=== PATIENT | female | born 1970 | race Caucasian/White ===

== ENCOUNTER 2017-11-05 07:47 | Outpatient (CLI) | payer BC | END 2017-11-05 07:48 | disposition home or self-care (01) | LOC: BICMAMMO 07:47 | PROVIDERS: ATTEND Family Medicine | DX: Z12.31 Encounter for screening mammogram for malignant neoplasm of breast (principal) | CPT/HCPCS: 77063; 77067 ==

== ENCOUNTER 2017-12-30 17:00 | Outpatient (CLI) | payer BC | END 2017-12-30 17:01 | disposition home or self-care (01) | LOC: SLEEPLAB 17:00 | PROVIDERS: ATTEND Internal Medicine Critical Care Medicine | DX: G47.33 Obstructive sleep apnea (adult) (pediatric) (principal); R53.83 Other fatigue | CPT/HCPCS: 95806 ==

== ENCOUNTER 2018-12-24 15:06 | Outpatient (CLI) | payer BC ==
--- NOTE | 2018-12-24 15:35 | MMO ---
Bilateral MAMMO Bilat Screen [facility]. CLINICAL HISTORY: Patient is 48 years old and is seen for screening. The patient has the following family history of breast cancer: paternal aunt. The patient has no personal history of cancer. VIEWS: The views performed were: bilateral craniocaudal with tomosynthesis and bilateral mediolateral oblique with tomosynthesis. FILMS COMPARED: The present examination has been compared to prior imaging studies performed at [facility] on 11/05/2017, and at [facility] on 05/15/2011. MAMMOGRAM FINDINGS: There are scattered fibroglandular densities. There are no suspicious masses, suspicious calcifications, or new areas of architectural distortion. IMPRESSION: THERE IS NO MAMMOGRAPHIC EVIDENCE OF MALIGNANCY. A ROUTINE FOLLOW-UP MAMMOGRAM IN 1 YEAR IS RECOMMENDED. THE RESULTS OF THIS EXAM WERE SENT TO THE PATIENT. ACR BI-RADS Category 1 - Negative MAMMOGRAPHY NOTE: 1. A negative mammogram report should not delay a biopsy if a dominant of clinically suspicious mass is present. 2. Approximately 10% to 15% of breast cancers are not detected by mammography. 3. Adenosis and dense breasts may obscure an underlying neoplasm.
== END 2018-12-24 15:07 | disposition home or self-care (01) ==
LOC: BICMAMMO 15:06
PROVIDERS: ATTEND Physician Assistant
DX: Z12.31 Encounter for screening mammogram for malignant neoplasm of breast (principal); Z80.3 Family history of malignant neoplasm of breast
CPT/HCPCS: 77063; 77067

== ENCOUNTER 2020-08-25 14:21 | Outpatient (CLI) | payer BC | END 2020-08-25 14:22 | disposition home or self-care (01) | LOC: BICMRI 14:21 | PROVIDERS: ATTEND Orthopaedic Surgery | DX: S69.81XA Other specified injuries of right wrist, hand and finger(s), initial encounter (principal) ==

== ENCOUNTER 2020-09-22 09:54 | Outpatient (CLI) | payer BC ==
[2020-09-22 12:12] LABS: #Basophils 0.1 10x3/uL (0.0-0.2); #Eosinphils 0.1 10x3/uL (0.0-0.5); #Monocytes 0.4 10x3/uL (0.0-1.1); %Eosinophils 2.7 % (0.0-6.0); %Monocytes 8.2 % (0.0-10.0); %Neutrophils 57.9 % (40.0-75.0); Hemoglobin 13.7 g/dL (12.0-15.5); Mean Corpuscular HGB CONC 32.5 g/dL (32.0-36.0); Mean Corpuscular Hemoglobin 28.8 pg (27.0-33.0); Mean Corpuscular Volume 88.6 fl (81.6-98.3); Mean Platelet Volume 9.8 fl (7.4-10.4); Platelet Count 292 10x3/uL (150-450); RBC Distribution Width 12.4 % (11.5-14.5); Red Blood Cell (RBC) Count 4.75 10x6/uL (3.90-5.03); White Blood Cell (WBC) Count 5.1 10x3/uL (3.5-10.5)
[2020-09-22 18:22] LABS: SARS-CoV-2 PCR by NAA Not Detected (NotDetected)
== END 2020-09-22 09:55 | disposition home or self-care (01) ==
LOC: LABBT 09:54
PROVIDERS: ATTEND Orthopaedic Surgery Hand Surgery
DX: Z01.812 Encounter for preprocedural laboratory examination (principal); Z20.822 Contact with and (suspected) exposure to COVID-19; S63.591A Other specified sprain of right wrist, initial encounter
CPT/HCPCS: 85025; 87635; U0003; U0005

== ENCOUNTER 2020-09-26 12:33 | Day surgery (SDC) | payer BC ==
[2020-09-22 12:45] VITALS: BMI 28.3
[2020-09-26] MEDS ORDERED: Midazolam HCl 2 mg/2 ml Vial ONE (15:05)
[2020-09-26] MEDS ORDERED: Dexamethasone 20 MG/5 ML VIAL ONE (15:16)
[2020-09-26] MEDS ORDERED: Ondansetron PF 4 MG/2 ML Vial ONE (15:16)
[2020-09-26] MEDS ORDERED: diphenhydrAMINE 50 MG/ML VIAL ONE (15:16)
[2020-09-26] MEDS ORDERED: Ketorolac Tromethamine 30 MG/ML VIAL ONE (15:16)
[2020-09-26] MEDS ORDERED: PROPOFOL 200 MG/20 ML VIAL ONE (15:16)
[2020-09-26] MEDS ORDERED: Bupivacaine PF 0.5% 30 ML VIAL ONE (17:02)
[2020-09-26] MEDS ORDERED: Fentanyl 100 MCG/2 ML VIAL ONE ×2 (17:02→20:21)
[2020-09-26] MEDS ORDERED: Sodium Chloride 0.9% 10 ML ONE (17:03)
[2020-09-26] MEDS ORDERED: Thrombin 5000 UNITS/5 ML VIAL ONE (17:03)
[2020-09-26] MEDS ORDERED: Bacitracin Zinc Ointment 30 gm TUBE ONE (17:03)
[2020-09-26] MEDS ORDERED: HYDROcodone/Acetaminophen 5/325 mg Tablet ONE (21:52)
== END 2020-09-26 22:25 | disposition home or self-care (01) ==
LOC: SDC 12:33
PROVIDERS: ATTEND Orthopaedic Surgery Hand Surgery
PROC: 0RBN4ZZ Excision of Right Wrist Joint, Percutaneous Endoscopic Approach (ICD-10-PCS; principal; 2020-09-26)
DX: S63.591A Other specified sprain of right wrist, initial encounter (principal); G89.18 Other acute postprocedural pain; I10 Essential (primary) hypertension; E11.9 Type 2 diabetes mellitus without complications; E78.5 Hyperlipidemia, unspecified; F32.9 Major depressive disorder, single episode, unspecified; G47.33 Obstructive sleep apnea (adult) (pediatric); Z79.899 Other long term (current) drug therapy; Z87.891 Personal history of nicotine dependence; Z88.6 Allergy status to analgesic agent
CPT/HCPCS: 76000; C1713; J0690; J1100; J1200; J1885; J2250; J2405; J2704; J3010; J3490; S0020

== ENCOUNTER 2020-11-22 15:41 | Outpatient (CLI) | payer BC ==
[2020-11-23 00:58] LABS: SARS-CoV-2 PCR by NAA Not Detected (NotDetected)
== END 2020-11-22 15:42 | disposition home or self-care (01) ==
LOC: LABBT 15:41
PROVIDERS: ATTEND Orthopaedic Surgery Hand Surgery
DX: Z01.812 Encounter for preprocedural laboratory examination (principal); T84.84XA Pain due to internal orthopedic prosthetic devices, implants and grafts, initial encounter; Z20.822 Contact with and (suspected) exposure to COVID-19
CPT/HCPCS: 87635; U0003; U0005

== ENCOUNTER 2020-11-25 05:48 | Day surgery (SDC) | payer BC ==
[2020-11-23 15:34] VITALS: BMI 28.3
[2020-11-25] MEDS ORDERED: Betamet Acet/Betamet Na Ph 30 MG/5 ML VIAL ONE (06:21)
[2020-11-25] MEDS ORDERED: Bupivacaine PF 0.5% 30 ML VIAL ONE (06:21)
[2020-11-25] MEDS ORDERED: Bacitracin Zinc Ointment 30 gm TUBE ONE (06:22)
[2020-11-25] MEDS ORDERED: Sodium Chloride 0.9% 10 ML ONE (06:22)
[2020-11-25] MEDS ORDERED: Midazolam HCl 2 mg/2 ml Vial ONE ×2 (07:03→07:09)
[2020-11-25] MEDS ORDERED: Fentanyl 100 MCG/2 ML VIAL ONE (07:09)
[2020-11-25] MEDS ORDERED: PROPOFOL 200 MG/20 ML VIAL ONE (07:14)
[2020-11-25] MEDS ORDERED: Lidocaine 1% PF 5 ML VIAL ONE (07:14)
[2020-11-25] MEDS ORDERED: Ketorolac Tromethamine 30 MG/ML VIAL ONE (08:16)
[2020-11-25] MEDS ORDERED: Labetalol HCl 100 MG/20 ML VIAL ONE (08:28)
== END 2020-11-25 10:29 | disposition home or self-care (01) ==
LOC: SDC 05:48
PROVIDERS: ATTEND Orthopaedic Surgery Hand Surgery
PROC: 0RPN04Z Removal of Internal Fixation Device from Right Wrist Joint, Open Approach (ICD-10-PCS; principal; 2020-11-25)
DX: T84.84XA Pain due to internal orthopedic prosthetic devices, implants and grafts, initial encounter (principal); I10 Essential (primary) hypertension; E78.5 Hyperlipidemia, unspecified; G47.33 Obstructive sleep apnea (adult) (pediatric); Z87.891 Personal history of nicotine dependence; Z79.899 Other long term (current) drug therapy; Z88.6 Allergy status to analgesic agent
CPT/HCPCS: 76000; 87635; J0690; J0702; J1885; J2250; J2704; J3010; J3490; S0020; U0003; U0005

== ENCOUNTER 2021-01-20 12:11 | Outpatient (CLI) | payer BC | END 2021-01-20 12:12 | disposition home or self-care (01) | LOC: ULT 12:11 | PROVIDERS: ATTEND Physician Assistant | DX: R01.1 Cardiac murmur, unspecified (principal) | CPT/HCPCS: 93306 ==

== ENCOUNTER 2021-01-20 13:16 | Outpatient (CLI) | payer BC | END 2021-01-20 13:17 | disposition home or self-care (01) | LOC: BICMAMMO 13:16 | PROVIDERS: ATTEND Physician Assistant | DX: Z12.31 Encounter for screening mammogram for malignant neoplasm of breast (principal); Z80.3 Family history of malignant neoplasm of breast | CPT/HCPCS: 77063; 77067 ==

== ENCOUNTER 2021-03-10 07:24 | Outpatient (CLI) | payer BC ==
[2021-03-10] MEDS ORDERED: Iopamidol-370 76% 500 ML 1 ML ONE (10:24)
== END 2021-03-10 07:25 | disposition home or self-care (01) ==
LOC: BICCT 07:24
PROVIDERS: ATTEND Internal Medicine Gastroenterology
DX: K38.8 Other specified diseases of appendix (principal); R19.5 Other fecal abnormalities; Z98.890 Other specified postprocedural states
CPT/HCPCS: 74177; Q9967